=== PATIENT | female | born 1990 | race Caucasian/White ===

== ENCOUNTER 2022-08-20 00:30 | Inpatient (IN) | payer OTHER, SELFPAY ==
[2022-08-19 23:52] VITALS: BP 118/80; PULSE 96; RESP 18; TEMP 36.7
[2022-08-19 23:58] VITALS: BP 118/80; PULSE 96; RESP 18; TEMP 36.7
[2022-08-20] VITALS (39 sets, daily range): BP systolic 97–130; BP diastolic 55–80; PULSE 0–101; RESP 16–20; TEMP 36.3–36.9; O2SAT 96–100
[2022-08-20 00:40] LABS: ROM Plus Positive
[2022-08-20 00:57] LABS: Source Nasal/Nares
[2022-08-20 00:58] LABS: HCT 35.3 % (36.0-46.0); HGB 11.9 g/dL (11.2-15.7); MCH 29.8 pg (27.0-33.0); MCHC 33.7 % (32.0-36.0); MCV 89 fL (80-95); MPV 11.9 fL (8.0-11.0); Platelet Count 158 10^3/uL (130-400); RBC 3.99 10^6/uL (3.93-5.22); RDW 12.5 % (11.7-14.6); RDW-SD 40.1 fL
[2022-08-20 01:40] LABS: COVID-19 PCR Negative (Negative)
--- NOTE | 2022-08-20 01:55 | W.PM.OBHPL1 ---
Date of service: 08/20/22 Time of Service: 01:56 Assessment and Plan Assessment and plan (1) : Status: Acute Assessment and plan: Nadege is a 31yo at 35.4w by certain LMP. Rh- GBS unknown HepB- RI. She has had an uncomplicated and was on ASA for COVID during . She called at approximately 1030pm with suspected PPROM at home, reported clear fluid with a small amount of blood. She presented to the center and was found to be grossly ruptured, and had started gene every 4-5 minutes. She has now been admitted for labor. SVE on admission by RN was 3/80/0. She has had several late decelerations to 60bpm lasting a minute, but they are not recurrent. Bolus has been given and she is changing position frequently. Category 2 FHT. Will monitor closely. Qualifiers: Weeks of gestation: 35 weeks Qualified Code(s): Z3A.35 - 35 weeks gestation of OB-HPI Labor/Delivery History of Present Illness Reason for Visit: Labor Chief Complaint: Uterine Contractions; Suspected Rupture of Membranes , Associated Signs and Symptoms of Suspected ROM: Gush of fluid at home soaking the bed.. NOLVIA Calculator Estimated Delivery Date Method Current WG Current Estimate 09/20/22 LMP (Certain) 35w 4d History of Present Expected Delivery Route/Plan Uncomplicated , anticipate . Would like to try unmedicated . Specific Issues/Plan Ashtma Rh- Assessment: History Reviewed & Current Review of Systems All systems reviewed & are unremarkable except as noted in HPI and below PFSH All Active Problems (Updated 08/20/22 @ 02:06 by Avery Moreno) (Acute) Medical History (Updated 08/20/22 @ 02:06 by Avery Moreno) Asthma Social History Smoking/Tobacco Use Status: Never Smoking risk assessment performed?: Yes Alcohol Intake: never Drug use: Never Do you feel safe at home: Yes Do you feel safe in your relationship?: Yes History History 1 Para 0 Hx # Term Pregnancies Multiple births Hx # Pregnancies Ectopic pregnancies AB induced Hx Number of Living Children AB spontaneous Meds Allergies and Home Medications Allergies Allergy/AdvReac Type Severity Reaction Status Date / Time cephalexin [From Keflex] Allergy Intermediate Unverified 08/20/22 02:11 amoxicillin [Amoxicillin] Allergy Unknown Unverified 08/20/22 02:11 Home Medications Medication Instructions Recorded Confirmed Type acetaminophen 500 mg tablet 1,000 mg PO PRN 09/23/13 09/23/13 History (Acetaminophen Extra Strength) cyclobenzaprine 10 mg tablet 10 mg PO Q8H PRN PRN Spasms #10 09/23/13 Rx tabs levonorgestrel 0.15 mg-ethinyl 1 tab PO DAILY 09/23/13 09/23/13 History estradiol 30 mcg tablets,3 mos pack(91) (Seasonale contraceptive) Allergy/Medication Comments:: Not taking above meds Exam Physical Exam Vital signs: Temp Pulse Resp BP Pulse Ox 36.7 C 73 20 97/58 L 99 08/20/22 00:30 08/20/22 01:50 08/20/22 00:30 08/20/22 01:50 08/20/22 01:18 Vital Signs Reviewed: Yes Constitutional Constitutional: no acute distress Detailed Labor and Delivery Exam Dilation: 3 Effacement (%): 80 station: 0 Cervix position: mid Consistency: soft Rivera Score: Cervical Points Exam 0 1 2 3 Dilation Closed 1-2cm 3-4 cm 5-6cm Effacement 0-30% 40-50% 60-70% 80% Consistency Firm Medium Soft Station -3 -2 -1,0 +1,+2 Position Posterior Mid Anterior Amniotic Membrane Status: Ruptured Rupture Method: Spontaneous Amniotic Fluid: Clear Pooling: Positive Nitrazine: Positive ROM Plus: Positive Monitor Mode: External Contraction Frequency(min): 3-4 Contraction Duration(sec): 60 Contraction Intensity: Moderate Fetus A Heart Rate Baseline: 135 Monitor Accelerations: Present Monitor Decelerations: Late Variability: Moderate (6-25 BPM) Presentation: Cephalic Categories: Category II Date of Membrane Rupture: 08/19/22 Time of Membrane Rupture: 21:45 Assessment Note: Moderate variability, normal baseline, accels. She does have non recurrent late decels approximately every 20 minutes. Category 2 HEENT Exam HEENT Exam: Normal Respiratory Exam Respiratory Exam: Normal Cardiovascular Exam Cardiovascular Exam: Normal Abdominal Exam Abdominal Exam: Normal Extremities Exam Extremities Exam: Normal Back/Spine/Pelvis Exam Back Exam: Normal Skin Exam Skin Exam: Normal Neurological Exam Neurological Exam: Normal Psychiatric Exam Psychiatric Exam: Normal Results Abnormal Lab Findings: Abnormal Labs 08/20/22 00:47 WBC 11.10 H Hct 35.3 L MPV 11.9 H Risk Assessment Risks Reviewed Risks Reviewed Upon Admission: Yes
--- NOTE | 2022-08-20 03:22 | W.PM.OBNL1 ---
Date of service: 08/20/22 Time of Service: 03:22 Pelvic Exam Dilation: 7 Effacement (%): 80 station: 0 Cervix Position: anterior Consistency: soft Vaginal Exam Presentation: Cephalic Contractions Monitor Mode: External Contraction Frequency(min): 2-3 Contraction Duration(sec): 60 Intensity: Moderate/Strong Fetus A Monitor: External (US) Heart Rate Baseline: 150 Presentation: Vertex Variability: Moderate (6-25 BPM) Categories: Category II FHR Rhythm: Regular Characteristics: Normal Accelerations: Present Decelerations: Late Recurrence: Intermittent Amniotic Membrane Status: Ruptured Assessment Note: Marisa monitor did not work so she is back on normal external monitors. She continues to have intermittent late decels with quick recovery to baseline, good variability. Assessment and Plan Assessment and plan (1) : Status: Acute Assessment and plan: She is making great progress now at 7/80/0, managing pain well with position changes. Intermittent lates still present. Continue present management. Qualifiers: Weeks of gestation: 35 weeks Qualified Code(s): Z3A.35 - 35 weeks gestation of Objective Abnormal lab results 08/20/22 Range/Units 00:47 WBC 11.10 H (4.4-10.8) 10^3/uL Hct 35.3 L (36.0-46.0) % MPV 11.9 H (8.0-11.0) fL Temp Pulse Resp BP Pulse Ox 36.6 C 89 20 97/58 L 99 08/20/22 01:50 08/20/22 02:58 08/20/22 01:50 08/20/22 01:50 08/20/22 01:18 Laboratory Results WBC 11.10 10^3/uL (4.4-10.8) H 08/20/22 00:47 RBC 3.99 10^6/uL (3.93-5.22) 08/20/22 00:47 Hgb 11.9 g/dL (11.2-15.7) 08/20/22 00:47 Hct 35.3 % (36.0-46.0) L 08/20/22 00:47 MCV 89 fL (80-95) 08/20/22 00:47 MCH 29.8 pg (27.0-33.0) 08/20/22 00:47 MCHC 33.7 % (32.0-36.0) 08/20/22 00:47 RDW 12.5 % (11.7-14.6) 08/20/22 00:47 Plt Count 158 10^3/uL (130-400) 08/20/22 00:47 MPV 11.9 fL (8.0-11.0) H 08/20/22 00:47 Membranes Rupture Positive 08/20/22 00:14 COVID-19 Source Nasal/Nares 08/20/22 00:35 SARS-CoV-2 (PCR) Negative (Negative) 08/20/22 00:35 Patient ABO/Rh O Negative 08/20/22 00:47 Antibody Screen POSITIVE 08/20/22 00:47 Antibody Identification Anti-D 08/20/22 00:47 Vital Signs Reviewed: Yes Subjective Patient Reports: No new Complaints Interval history since last seen: Contractions with increased intensity, lots of bloody show, feeling more pressure and urge to push Results Hemoglobin/Hematocrit: Hgb 11.9 g/dL (11.2-15.7) 08/20/22 00:47 Hct 35.3 % (36.0-46.0) L 09 00:47 Abnormal Lab Findings: Abnormal Labs 08/20/22 00:47 WBC 11.10 H Hct 35.3 L MPV 11.9 H
[2022-08-20] MEDS: Lactated Ringers 1,000 ML 125 ML IV (05:48)
[2022-08-20] MEDS: Oxytocin/Normal Saline 30 UNIT/500 ML BAG 334 UNITS IV (07:22)
--- NOTE | 2022-08-20 07:47 | W.OBDELIVERY ---
Date of service: 08/20/22 Time of Service: 07:47 OB Labor/ Delivery Information Baby A Delivery Delivery Method: Assisted (kiwi) Presentation: Vertex Vertex Position: Right Occipital Transverse Breech Position: N/A Cord Description-Baby A: 3 Vessels and Nuchal Cord (around right arm, loose) Amniotic Fluid: Clear Delivery Outcome: Liveborn Complications: none Transferred: Remains with Mother Providers Doctor: Avery Moreno Nurse: Jewels Borrego Nurse: Sujey Cramer Labor/Delivery Information Number of Babies in Womb: 1 Steroids Given: None Reason Steroids Not Administered: N/A Group Beta Strep: Done-Result Unknown Antibiotics Administered: No Rubella Status: Immune Blood Type: O- Varicella Immunity: Not Tested Born En Route: No Maternal Complications: Prolonged Second Stage(>2hrs) Shoulder Dystocia: No Stages of Labor Onset of Labor Date: 08/19/22 Onset of Labor Time: 22:00 Complete Dilatation Date: 08/20/22 Complete Dilatation Time: 04:35 Labor - Stage 1 Duration: 24 hours and 0 minutes ROM Baby A: 08/19/22 ROM Baby A: 21:45 Infant Delivery Date-Baby A: 08/20/22 Placenta Delivery Date-Baby A: 08/20/22 Placenta Status: Delivered Baby A Gender: Male Gestational Status: Late (34-36.6 wks) Gestational Age in Weeks/Days: 35 Weeks and 4 Days Note: Nadege labored well and reached complete at 435am. She pushed well and brought baby down effectively. She continued to push with baby on perineum for over 20 minutes without further progress. At this time FHT showed minimal variability, slightly elevated baseline, no decelerations. I requested Dr Waggoner be called for support with a Kiwi vacuum. When she arrived, the vacuum was placed and babys head was delivered through the next 3 contractions described below. Loose nuchal cord was around his right arm, delivered through. Due to his late status and prolonged pushing, I requested peds be present for the delivery. Baby was immediately stimulated, and cord cut, and brought to the warmer. Apgars were and 8. Cord blood was collected. Placenta delivered spontaneously without issue. Mom had a small first degree laceration on the posterior vaginal wall and an area on the left vaginal wall that was bleeding but hemostasis was achieved with pressure. No repairs were necessary. Once baby was stable, he was put skin to skin with mom. Anticipate routine post care. She intends to breast feed. Procedure Procedures: Cord Blood Collection (cord blood collected by Dr Waggoner) Interventions Oxygen , Indication: maternal fatigue and SOB ./ Assisted Delivery Baby A , Type of Assisted Delivery: Vacuum Kiwi was placed on baby with head on the perineum ensuring no maternal tissue under suction, and placement between fontanelles. Pulled through 2 contractions with a pop off on the second contraction. With third contraction, babys head was maneuvered under the pelvic bone and then delivered. : Hemorrrhage Note IV Site Right Forearm: IV Catheter Gauge: 18
[2022-08-20] MEDS: Hamamelis Leaf/Glycerin 100 EACH BOX PR (08:52)
[2022-08-20] MEDS: Dibucaine 1% 28 GM TUBE TP (08:52)
[2022-08-20] MEDS: Ibuprofen 600 MG TAB PO (10:13)
[2022-08-21] MEDS: Ibuprofen 600 MG TAB PO ×3 (00:07→13:50)
[2022-08-21] MEDS: Acetaminophen 325 MG TAB 650 MG PO ×3 (02:24→13:50)
[2022-08-21 09:49] VITALS: BP 100/58; PULSE 81; RESP 17; TEMP 36.6; O2SAT 97
[2022-08-21 13:52] VITALS: BP 100/64; PULSE 79; RESP 17; TEMP 37.2; O2SAT 99
--- NOTE | 2022-08-21 18:07 | OBVDS_ITS ---
Date of service: 08/20/22 Time of Service: 08:00 OB Labor/ Delivery Information Baby A Delivery Delivery Method: Assisted Presentation: Vertex Cephalic Position: Vertex Vertex Position: Right Occipital Transverse Breech Position: N/A Cord Description-Baby A: 3 Vessels and Nuchal Cord (loose around right arm) Amniotic Fluid: Clear Delivery Outcome: Liveborn Infant Transferred: Remains with Mother Providers Doctor: Avery Moreno Belt Sewer: Chela Ma Nurse: Jewels Borrego Nurse: Sujey Cramer Other: Aylin Rubio, Floresita Patel, Meliza Boston Labor/Delivery Information Number of Babies in Womb: 1 Steroids Given: None Reason Steroids Not Administered: N/A Group Beta Strep: Done-Result Unknown Antibiotics Administered: No Rubella Status: Immune Blood Type: O- Varicella Immunity: Not Tested Born En Route: No Maternal Complications: Prolonged Second Stage(>2hrs) Shoulder Dystocia: No Stages of Labor Onset of Labor Date: 08/19/22 Onset of Labor Time: 22:00 Complete Dilatation Date: 08/20/22 Complete Dilatation Time: 04:35 Labor - Stage 1 Duration: 24 hours and 0 minutes ROM Baby A: 08/19/22 ROM Baby A: 21:45 ROM Total Time- Baby A: [id number] Delivery Date-Baby A: 08/20/22 Infant Delivery Time-Baby A: 07:22 Labor Stage 2 Duration: 2 hours and 47 minutes Placenta Delivery Date-Baby A: 08/20/22 Placenta Delivery Time-Baby A: 07:24 Labor-Stage 3 Duration: 2 minutes Total Length of Labor-Baby A: 9 hours and 22 minutes Placenta Cultured: No Placenta Status: Delivered Baby A Gender: Male Gestational Status: Late (34-36.6 wks) Gestational Age in Weeks/Days: 35 Weeks and 4 Days weight: 2575 g Length-Baby A: 48.26 cm Head Circumference-Baby A: 31.75 cm Score-1 Minute Interval(Baby A) Heart Rate-1 minute: 100 BPM or Greater Respiratory Effort- 1 minute: Spontaneous/Strong Cry Muscle Tone-1 minute: Limp Reflex Response-1 minute: Minimal Response Color-1 minute: Bluish Hands or Feet Total Score-1 minute: 6 Score-5 Minute Interval(Baby A) Heart Rate- 5 minute: 100 BPM or Greater Respiratory Effort-5 minute: Spontaneous/Strong Cry Muscle Tone-5 minute: Minimal Flexion/Extension Reflex Response-5 minute: Minimal Response Color-5 minute: [place]/No Cyanosis Total Score- 5 minute: 8 Note: Entered next day to allow nursing documentation to be completed. Nadege labored well and reached complete at 435am. She pushed well and brought baby down effectively. She continued to push with baby on perineum for over 20 minutes without further progress. At this time FHT showed minimal variability, slightly elevated baseline, no decelerations. I requested Dr Waggoner be called for support with a Kiwi vacuum. When she arrived, babys head was still on the perineum and the vacuum was placed ensuring no maternal tissue under suction, and placement between fontanelles. Pulled through 2 contractions with a pop off on the second contraction. With third contraction, babys head was maneuvered under the pelvic bone and then delivered. Loose nuchal cord was around his right arm, delivered through. Due to his late status and prolonged pushing, I requested peds be present for the delivery. Baby was immediately stimulated, and cord cut, and brought to the warmer. Apgars were 6 and 8. No significant resuscitation was necessary. Cord blood was collected. Placenta delivered spontaneously without issue. Mom had a small first degree laceration on the posterior vaginal wall and an area on the left vaginal wall that was bleeding but hemostasis was achieved with pressure. No repairs were necessary. Once baby was stable, he was put skin to skin with mom. Anticipate routine post care. She intends to breast feed. Procedure Procedures: Cord Blood Collection Interventions Oxygen , Indication: maternal fatigue with SOB ./ Assisted Delivery (Kisi vacuum due to ROT position and failure to progress)
--- NOTE | 2022-08-21 18:17 | OBPPV_ITS ---
Date of service: 08/21/22 Time of Service: 18:17 Assessment and Plan Assessment and plan (1) Status post vacuum-assisted vaginal delivery: Status: Acute Assessment and plan: Nadege is doing well, pain improved since yesterday. she is eager to go home but otherwise no complaints. Working on nursing and will start pumping more. Comfortable with supplementation plan for baby which likely will include formula. Encourged to nurse and pump every 2-3 hours, and feed all pumped breast milk to baby. Baby blood type O- so no rhogam necessary. No other concerns. Routine post care. Subjective Subjective Interval history: Nadege is doing well. Pain improved as long as she rests. Eating well. Voiding and has had a small BM. Up and about without issue. Lochia normal. Patient comments: No complaints, Pain well controlled, Tolerating diet and Bowel Movement baby status: Doing well, Rooming in, Strong Bonding Observed and Excessive weight loss [place] feeding status: Exclusively breast feeding Exam Physical Exam Vital signs: Temp Pulse Resp BP Pulse Ox 37.2 C 79 17 100/64 99 08/21/22 13:52 08/21/22 13:52 08/21/22 13:52 08/21/22 13:52 08/21/22 13:52 Vital Signs Reviewed: Yes Constitutional Constitutional: no acute distress HEENT Exam HEENT Exam: Normal Respiratory Exam Respiratory Exam: Normal Cardiovascular Exam Cardiovascular Exam: Normal Abdominal Exam Abdomen: Tender Fundal Exam Fundus: Below Umbilicus and Firm Rectal Exam Rectal Exam: Hemmorhoids Extremities Exam Extremity Exam: Normal Neurological Exam Neurological Exam: Normal Psychiatric Exam Psychiatric Exam: Normal Results Hemoglobin/Hematocrit: Hgb 11.9 g/dL (11.2-15.7) 08/20/22 00:47 Hct 35.3 % (36.0-46.0) L 08/20/22 00:47 Abnormal Lab Findings: Abnormal Labs 08/20/22 00:47 WBC 11.10 H Hct 35.3 L MPV 11.9 H
[2022-08-21 19:35] VITALS: BP 105/64; PULSE 76; RESP 18; TEMP 36.6
[2022-08-22 08:05] VITALS: BP 102/62; PULSE 78; RESP 17; TEMP 36.8
--- NOTE | 2022-08-22 08:47 | W.NBPROGRESS ---
Date of service: 08/22/22 Time of Service: 08:48 Subjective Note latching well, sucking, some supplement overnight. stable vitals wt down a little - 8-9% Weight Assessment Weight Change: weight 2575 g Weight 66.678 kg Exam General Apperance Notable Details: no jaundice Skin Notable Details: no jaundice Cardiovascular Notable Details: no murmur Respiratory Notable Details: clear I&O Intake/Output Totals 24 Hours: 08/20/22 08/21/22 08/21/22 08/22/22 23:59 11:59 23:59 11:59 Intake Total 360 / 739.5 1000 / 1167 167 / 1167 Output Total 1300 / 4055 Balance -940 / -3315.5 1000 / 1167 167 / 1167 Intake: IV 167 / 167 Oral 360 / 360 1000 / 1000 Output: Urine 1300 / 3600 Other: Urine Color Yellow Yellow Yellow
--- NOTE | 2022-08-22 08:54 | W.PM.OBPNV1 ---
Date of service: 08/22/22 Time of Service: 08:54 Subjective Subjective Interval history: getting sleep, approp parenting concerns re infant's wt, feeds BF off to good start, minimal lochia no fever, pain, swelling doing all self care scant tears/overwhelmed - approip feelings more confident today Exam Physical Exam Vital signs: Temp Pulse Resp BP Pulse Ox 36.8 C 78 17 102/62 99 08/22/22 08:05 08/22/22 08:05 08/22/22 08:05 08/22/22 08:05 08/21/22 13:52 Narrative: fundus firm at umb no pedal edema Abdominal Exam Comments: firm fundus at umb Fundal Exam Comment: firm fundus at umb Results Hemoglobin/Hematocrit: Hgb 11.9 g/dL (11.2-15.7) 08/20/22 00:47 Hct 35.3 % (36.0-46.0) L 08/20/22 00:47 Abnormal Lab Findings: Abnormal Labs 08/20/22 00:47 WBC 11.10 H Hct 35.3 L MPV 11.9 H
--- NOTE | 2022-08-22 09:45 | NUR.NOTE ---
lab called center to inform her that pt is GBS positive Nursing Note:
[2022-08-22] MEDS: Acetaminophen 325 MG TAB 650 MG PO ×2 (15:27→21:01)
[2022-08-22 19:15] VITALS: BP 106/69; PULSE 84; RESP 17; TEMP 36.7
[2022-08-23 08:50] VITALS: BP 112/72; PULSE 87; RESP 16; TEMP 36.6
--- NOTE | 2022-08-23 09:05 | W.PM.OBDISCH ---
Date of service: 08/23/22 Time of Service: 09:05 DS: Diagnosis Discharge Diagnosis (1) Status post vacuum-assisted vaginal delivery: Status: Acute Asessment and Plan: routine f/u bf support Discharge Plan Disposition Patient Disposition: HOME Condition: Good Discharge Details Reason For Visit: Labor Admit Date/Time: 08/20/22 00:30 Admit Provider: Avery Moreno Attending Provider: Avery Moreno Primary Care Provider: None,None Home Meds and New Rx's Prescriptions: No Action aspirin [Aspir-81] 81 mg Tablet,Delayed Release (Dr/Ec) 81 mg PO DAILY albuterol 90 mcg/actuation Aerosol 180 mcg INHALATION Q4H PRN #2 Tablet 1 tab PO DAILY Discharge Instructions Activity:: Activity as Tolerated Equipment/Supplies:: breast pump Diet:: As Tolerated Discharge Orders Discharge Orders: Discharge Order (Routine); Ordered 08/23/22 Ordered By: Yossi Burris OB:DS Summary Summary Vaginal Delivery Method: Assisted Episiotomy Description: None Laceration Description: Perineal Laceration Extension: First Degree Contraception Discussed Contraception Discussed: Yes, [place] Gender-Baby A: Male weight: 2575 g Status at Discharge Functional status at discharge: independent ambulation Overall status at discharge: patient is back to baseline Mental Status: mental status grossly normal Speech and Movement: speech and movement normal Mood: congruent mood Affect: normal affect Exam Physical Exam Vital signs: Temp Pulse Resp BP Pulse Ox 36.7 C 84 17 106/69 99 08/22/22 19:15 08/22/22 19:15 08/22/22 19:15 08/22/22 19:15 08/21/22 13:52 Narrative: firm fundus at umb no peripheral edema Constitutional Comments: eating, stooling, urine all good no issues with self care PFSH All Active Problems (Updated 08/21/22 @ 18:19 by Avery Moreno) Status post vacuum-assisted vaginal delivery (Acute) (Acute) Medical History (Updated 08/21/22 @ 18:19 by Avery Moreno) Asthma Social History Smoking/Tobacco Use Status: Never Smoking risk assessment performed?: Yes Alcohol Intake: never Drug use: Never Do you feel safe at home: Yes Do you feel safe in your relationship?: Yes History History 1 Para 0 Hx # Term Pregnancies Multiple births Hx # Pregnancies Ectopic pregnancies AB induced Hx Number of Living Children AB spontaneous DS: Data Vitals/I&O Vitals and I&O: Vital Signs Temperature 36.7 C 08/22/22 19:15 Pulse 84 08/22/22 19:15 Pulse Rhythm Regular 08/22/22 19:15 Respiratory Rate 17 08/22/22 19:15 Respiratory Depth Normal 08/22/22 08:02 Blood Pressure 106/69 08/22/22 19:15 Blood Pressure Mean 81 08/22/22 19:15 Pulse Oximetry 99 08/21/22 13:52 Oxygen Delivery Method Room Air 08/19/22 23:52 Oxygen Flow Rate 0 08/19/22 23:52 Pain Level 0 08/22/22 22:01 Comment 08/20/22 19:00 Intake & Output 08/22/22 08/22/22 08/23/22 11:59 23:59 11:59 Intake Total 200 / 200 Balance 200 / 200 Intake: Oral 200 / 200 Other: Urine Color Yellow
--- NOTE | 2022-08-23 16:10 | NUR.NOTE ---
Late entry documentation d/t this user being pulled from unit prior to completing entries Nursing Note:
== END 2022-08-23 15:45 | disposition home or self-care (01) | DRG 806 ==
LOC: OBS 00:36
PROVIDERS: Admitting Provider Family Medicine; Visit Provider Family Medicine
DX: O42.013 Preterm premature rupture of membranes, onset of labor within 24 hours of rupture, third trimester (principal); O36.0930 Maternal care for other rhesus isoimmunization, third trimester, not applicable or unspecified; Z37.0 Single live birth; O71.4 Obstetric high vaginal laceration alone; O63.1 Prolonged second stage (of labor); O69.81X0 Labor and delivery complicated by cord around neck, without compression, not applicable or unspecified; Z3A.35 35 weeks gestation of pregnancy
CPT/HCPCS: 84112; 85027; 86850; 86900; 86901; 87635; 86870; 87081; J3490